=== PATIENT | female | born 1985 | race Caucasian/White ===

== ENCOUNTER 2018-01-04 06:26 | Inpatient (IN) | payer OTHER ==
[2018-01-04] MEDS ORDERED: AMMONIA AROMATIC 1 EACH AMP IH PRN (06:34)
[2018-01-04] MEDS ORDERED: LR 1,000 ML IV PRN (06:34)
[2018-01-04] MEDS ORDERED: OXYTOCIN 20 UNIT in LR 1,000 ML IV PRN (06:34)
[2018-01-04] MEDS ORDERED: MISOPROSTOL 200 MCG TAB PO PRN (06:34)
[2018-01-04] MEDS ORDERED: EPSOM SALT 454 GM TP PRN (06:34)
[2018-01-04] MEDS ORDERED: OLIVE OIL 118 ML BTL MISC PRN (06:34)
[2018-01-04] MEDS ORDERED: TERBUTALINE SULFATE 1 MG/ML VIAL IV PRN (06:34)
[2018-01-04 07:30] LABS: PLATELET COUNT 266 10^3/uL (150-400)
[2018-01-04] MEDS ORDERED: LR 500 ML IV PRN (08:48)
--- NOTE | 2018-01-04 08:48 | PDGENHP ---
History and Physical History and Physical: HPI: Patient is a 32 yo with IUP@ 39-5wks that presents to L&D with complaints of irregular contractions. She has been having contractions since last night at 2200. She is rating pain with contractions 5/10. She denies any alleviating or aggravating factors. She denies any LOF, VB. She reports +FM. EDC: 01/06/18 which is based on LMP: 04/01/17 which is known and consistent with Ultrasound at 8 weeks. Her is complicated by: depression/anxiety (on Zoloft 50 mg), history of fast labor, asthma Review of Systems: Constitutional: Denies any fever, chills, or fatigue HEENT: denies any visual changes, difficulty swallowing, hearing loss Cardiovascular: Denies any chest pain, palpitations, leg swelling Respiratory: denies any cough, wheezing, or shortness of breathe GI: Denies any nausea, vomiting, diarrhea, constipation : denies any dysuria, urgency, frequency, vaginal bleeding Musculoskeletal: denies any muscle or bone pain Skin: denies any rashes Neuro: denies any headache, seizures, lightheadedness, dizziness, or loss of consciousness Psychiatric: denies any depression, anxiety, or SI/HI thoughts HISTORY: Previous OB history: x1, 5#10 Past medical history: Depression/anxiety, asthma Past surgical history:oral surgery Medications: PNV, Zoloft Allergies (list reaction): NKDA LABS: Rh: A positive ABS: Neg Rubella: Immune HbsAg: NR HIV: NR VDRL: NR 1hr: 104 GC: Neg Chlamydia: Neg Pap: Normal GBS: Negative PHYSICAL EXAM: Constitutional: WN, A&Ox3 HEENT: normocephalic atraumatic, supple Heart: RRR, no murmur Chest: CTA-B Abdomen: Soft, nontender, gravid SVE: 4/60/-2 Extremities: no edema, negative tania's sign Neuro: grossly normal Psych: normal affect assessment: Reassuring FHTs, baseline 140 +accels, no decels, moderate variability Contractions: toco q irregular Assessment: 1) 32yo with IUP@ 39-5wks () 2) early labor 3) GBS negative 4) Cat 1 FHR tracing Plan: 1) Admit to L&D 2) pitocin augmentation 3) pain management PRN 4) anticipate
[2018-01-04] MEDS ORDERED: OXYTOCIN 30 UNIT in NS 500 ML IV SCH (09:00)
[2018-01-04] MEDS ORDERED: PHENYLEPHRINE HCL 100 MCG/ML SYR ONE (13:44)
[2018-01-04] MEDS ORDERED: BUPIVACAINE 0.25% 30 ML SDV ONE (13:44)
[2018-01-04] MEDS ORDERED: fentaNYL 100 MCG/2 ML INJ ONE (13:45)
[2018-01-04] MEDS ORDERED: ONDANSETRON 4 MG/2 ML VIAL IVP PRN (14:48)
[2018-01-04] MEDS ORDERED: PHENYLEPHRINE HCL 100 MCG/ML SYR IVP PRN (14:48)
--- NOTE | 2018-01-04 14:51 | POSTANESTH ---
Post Anesthetic Evaluation Cardiovascular Status: Similar to Pre-Op Cond Respiratory Status: Normal, Stable, Similar to Pre-op Cond. Level of Consciousness/Mental Status: Can Participate in Eval, Alert and Oriented Pain Control: Adequate, Prn Tx Ordered Nausea/Vomiting Control: Adequate, Prn Tx Ordered Complications Possibly Related to Anesthesia: None Noted
[2018-01-04] MEDS ORDERED: LR 500 ML IV SCH (15:00)
--- NOTE | 2018-01-04 15:07 | PREANESOB ---
Obstetric Pre-Anesthesia Info - General Info Proposed Procedure: Labor and delivery with pitocin. : 2 Para: 1 - Info Monitors: External FHR Baseline (bpm): 135 FHR Pattern: Reassuring - Labor Status Pitocin: In Use Indications for Labor Analgesia: Induction of Labor, Pain Control Labor Epidural: Proposed Anesthesia ROS: Prior anesthesia for removal of wisdom teeth. Allergies/Adverse Reactions: Allergy/AdvReac Type Severity Reaction Status Date / Time No Known Allergies Allergy Verified 01/04/18 06:52 Home Medications: Medication Instructions Recorded 1 tab PO DAILY 01/04/18 Visit Medications: Generic Name Dose Route Start Last Admin Trade Name Freq PRN Reason Stop Dose Admin Ammonia (Aromatic Spirit) 1 each 01/04/18 06:34 Ammonia Aromatic IH 01/14/18 06:33 ONCE PRN Fainting Diphenhydramine HCl 25 - 50 mg 01/04/18 14:48 Benadryl Injection IVP 07/03/18 14:47 Q6HRS PRN Itching Lactated Ringer's 1,000 mls @ 0 mls/hr 01/04/18 06:34 Lr IV 01/05/18 06:33 PRN PRN SEE PROTOCOL CONDITIONS Protocol Per Protocol Oxytocin 20 unit/ Lactated 1,002 mls @ 150 mls/hr 01/04/18 06:34 Ringer's IV PRN PRN Post- bleeding Lactated Ringer's 500 mls @ 500 mls/hr 01/04/18 08:48 Lr IV 01/05/18 08:48 PRN PRN Maternal Hypotension Oxytocin 30 unit/ Sodium 503 mls @ 0 mls/hr 01/04/18 09:00 01/04/18 09:14 Chloride IV 07/03/18 08:59 503 mls CONT IASAK Administration Protocol Per Protocol Lactated Ringer's 500 mls @ 0 mls/hr 01/04/18 15:00 Lr IV 07/03/18 14:59 CONT ISAAK As Directed Ibuprofen 600 mg 01/04/18 06:34 Motrin PO 07/03/18 06:33 Q6HRS PRN post , inflammation Magnesium Sulfate 454 gm 01/04/18 06:34 Epsom Salt TP 07/03/18 06:33 Q1H PRN perineal discomfort Misoprostol 800 - 1,000 mcg 01/04/18 06:34 Cytotec PO ONCE PRN Vaginal Atony/Bleeding [place] Oil 118 ml 01/04/18 06:34 Sweet Oil MISC 07/03/18 06:33 ONCE PRN perineal massage Ondansetron HCl 4 mg 01/04/18 14:48 Zofran IVP 01/05/18 14:47 Q4HRS PRN Nausea/Vomiting, Can't Take PO Phenylephrine HCl 100 mcg 01/04/18 14:48 Neosynephrine IVP 07/03/18 14:47 .Q2M PRN Hypotension Terbutaline Sulfate 0.25 mg 01/04/18 06:34 Brethine IV 07/03/18 06:33 ONCE PRN Tachysystole Discontinued Medications Generic Name Dose Route Start Last Admin Trade Name Aquiles PRN Reason Stop Dose Admin Bupivacaine HCl Confirm 01/04/18 13:44 Sensorcaine 0.25% Sdv Administered 01/04/18 13:45 Dose 30 ml .ROUTE .STK-MED ONE Fentanyl Confirm 01/04/18 13:45 Sublimaze Administered 01/04/18 13:46 Dose 100 mcg .ROUTE .STK-MED ONE Phenylephrine HCl Confirm 01/04/18 13:44 Neosynephrine Administered 01/04/18 13:45 Dose 1,000 mcg .ROUTE .STK-MED ONE - Anesthesia History Response to Local Anesthetics: Normal Anesthesia & Operative History: No Prior Problems Family Anesthesia History: Negative - Social History Substance Use/Abuse: Denies - Vital Signs Blood Pressure: 117/73 Heart Rate: 87 Height/Weight (Nursing): Height 162.56 cm Weight 79.832 kg - Focused Exam Neck exam: FROM Mallampati Score: Class 1 Mouth exam: normal dental/mouth exam Pulmonary: no respiratory distress Cardiovascular: regular rate and rhythym Labs: 01/04/18 07:10 Patient ABO/Rh A POSITIVE 01/04/18 07:10 - Plan Consent Signed and on Chart: Yes Patient/Guardian Understands and Agrees to Plan: Yes Urgent/Emergent Case: Sydnee ponce completed preop but documented later for safe timely pt care (Written consent after CSE due to patient discomfort.)
--- NOTE | 2018-01-04 15:49 | OBDEL ---
Info Type: Vaginal Presentation at Delivery: Vertex L&D Analgesia/Anesthesia Type: Epidural GBS+: No Intrapartum Medications: Generic Name Dose Route Start Last Admin Trade Name Aquiles PRN Reason Stop Dose Admin Oxytocin 30 unit/ Sodium 503 mls @ 0 mls/hr 01/04/18 09:00 01/04/18 09:14 Chloride IV 07/03/18 08:59 503 mls CONT ISAAK Administration Protocol Per Protocol Indications for Delivery: Spontaneous Labor Vaginal Delivery - Delivery Provider Delivery Physician/CNM: Nuria Franklin - Labor and Delivery Onset of Contractions Date: 01/04/18 Onset of Contractions Time: 13:00 Onset of Contractions Type: Augmented Rupture of Membranes Date: 01/04/18 Rupture of Membranes Time: 14:30 Rupture of Membranes Type: Spontaneous Amniotic Fluid Color: Clear Dilation Complete Date: 01/04/18 Dilation Complete Time: 14:22 Placenta Delivery Date: 01/04/18 Placenta Delivery Time: 14:38 Total Hours of Labor: 1 Laceration: 1st Degree Repair: 3-0, Vicryl Vaginal Sponge Count Correct: Yes Vaginal Needle Count Correct: Yes Vaginal Sweep Performed: Yes EBL: 150 - Medications Labor Augmentation/Induction Methods Used: Pitocin Labor Augmentation/Induction Indication: Contraction Strength Inadequate [place] Data ANGEL: 01/06/18 Gestational Age: 39 week(s) and 5 day(s) Arellano Delivery Date: 01/04/18 Delivery Time: 14:31 Sex of : Female Score (1 Min): 8 Score (5 Min): 8 ICD10 Worksheet Patient Problems: Problems Problem Status Onset First degree perineal laceration during delivery Acute Normal labor and delivery Acute - ICD10 Problem Qualifiers (1) Normal labor and delivery (2) First degree perineal laceration during delivery
[2018-01-04] MEDS ORDERED: HYDROCODONE/APAP 5/325 TAB PO PRN (16:10)
[2018-01-04] MEDS ORDERED: SIMETHICONE 80 MG TAB CHEW PO PRN (16:10)
[2018-01-04] MEDS ORDERED: HYDROCORTISONE 0.5% CREAM TP PRN (16:10)
[2018-01-04] MEDS ORDERED: ACETAMINOPHEN 325 MG TAB PO PRN (16:10)
[2018-01-04] MEDS: IBUPROFEN 600 MG TAB PO PRN ×2 (16:56→22:43)
[2018-01-04 18:43] VITALS: RESP 18
[2018-01-04] MEDS: SERTRALINE HCL 50 MG TAB PO SCH (20:13)
[2018-01-04] MEDS: DOCUSATE SODIUM 100 MG CAP PO PRN (20:13)
[2018-01-05] MEDS: IBUPROFEN 600 MG TAB PO PRN ×4 (05:30→23:32)
[2018-01-05] MEDS: SERTRALINE HCL 50 MG TAB PO SCH (11:44)
--- NOTE | 2018-01-05 17:39 | OBPP ---
Progress Note Assessment/Plan: Assessment: PPD 1 s/p PT SEEN APPROX NOON - LATE NOTE mild anemia Plan: routine care 01/05/18 17:35 Subjective/ Course: 01/05/18 17:36 Pt doing well. happy with labor progress and delivery. bld is less - mod cramps with latching. urinating fine. disc hydrating well. Objective: 01/04/18 07:10 Patient ABO/Rh A POSITIVE 01/04/18 07:10 Temp Pulse Resp BP Pulse Ox 36.9 C 89 18 110/79 95 01/05/18 08:00 01/05/18 08:00 01/05/18 08:00 01/05/18 08:00 01/05/18 08:00 Uterine Position/Fundal Height: Umbilicus -1 Uterine Tone: Firm Physical Exam - Physical Exam Abdomen: non-tender, soft, other (FF at umb -1) Extremities: non-tender, pedal edema (mild) Skin: normal color, warm/dry Neuro/Psych: alert, normal mood/affect
[2018-01-05 20:54] VITALS: O2SAT 92
[2018-01-05] MEDS: DOCUSATE SODIUM 100 MG CAP PO PRN (23:32)
[2018-01-06] MEDS ORDERED: IRON POLYSAC/IRON HEME 28 MG TAB PO SCH (09:00)
[2018-01-06] MEDS: IBUPROFEN 600 MG TAB PO PRN (09:17)
[2018-01-06] MEDS: DOCUSATE SODIUM 100 MG CAP PO PRN (09:17)
[2018-01-06] MEDS: SERTRALINE HCL 50 MG TAB PO SCH (09:17)
[2018-01-06 09:23] VITALS: BP 122/74; PULSE 85; TEMP 98.2
--- NOTE | 2018-01-06 12:03 | OBGCSDC ---
General Delivery Information - General Info : 2 Para: 2 Abortions: 0 Type: Vaginal L&D Analgesia/Anesthesia Type: Epidural Admission Date: 01/04/18 Labs: Patient ABO/Rh A POSITIVE 01/04/18 07:10 Hct 34.4 % (38.0-47.0) L 01/04/18 07:10 - Hospital Course : 01/05/18 17:36 Pt doing well. happy with labor progress and delivery. bld is less - mod cramps with latching. urinating fine. disc hydrating well. 01/06/18 12:55 S) Pt doing well, reports min pain and bleeding. she is ambulating and voiding without difficulty. She is . She desires discharge home today. O) VSS, afebrile constitutional: WNWF, A&Ox3 HEENT: normocephalic, atraumatic, supple Heart: RRR, No murmur Chest: CTA-B Abdomen: Soft, nontender Uterus: Firm at U-2 Lochia: Minimal rubra Perineum: Intact, healing well Extremities: Trace edema, and negative Mirna's sign Neuro: Grossly normal A) 32-year-old S/P PPD#2 P) Discharge home today Continue Pelvic rest x6wks Discussed danger signs (infection, preeclampsia, depression, heavy bleeding, etc ) RTO in 4/6 weeks Vaginal - Delivery Provider Delivery Physician/CNM: Nuria Franklin - Diagnosis Labor: Augmented Rupture of Membranes Type: Spontaneous Amniotic Fluid Color: Clear Laceration: 1st Degree Repair: 3-0, Vicryl - Delivery EBL: 150 Data ANGEL: 01/06/18 Gestational Age: 40 week(s) and 0 day(s) Arellano Delivery Date: 01/04/18 Delivery Time: 14:31 Sex of : Female Score (1 Min): 8 Score (5 Min): 8 Discharge Information - Discharge Information Prescriptions: Ibuprofen [Motrin (*)] 600 mg PO Q6HRS PRN #60 tab PRN Reason: post , inflammation Docusate Sodium [Colace 100 MG (*)] 100 mg PO BID PRN #60 cap PRN Reason: Constipation Iron Polysacch/Iron Heme Polyp [Bifera] 28 mg PO DAILY #60 tab Condition: Good Instruction/Follow Up: Four Weeks, Six Weeks
== END 2018-01-06 13:15 | disposition home or self-care (01) | DRG 775 ==
LOC: FLD 06:26 → FOB 15:00
PROVIDERS: ADMIT Advanced Practice Midwife; ATTEND Advanced Practice Midwife
PROC: 3E033VJ Introduction of Other Hormone into Peripheral Vein, Percutaneous Approach (ICD-10-PCS; principal; 2018-01-04)
PROC: 10E0XZZ Delivery of Products of Conception, External Approach (ICD-10-PCS; principal; 2018-01-04)
PROC: 0HQ9XZZ Repair Perineum Skin, External Approach (ICD-10-PCS; principal; 2018-01-04)
DX: O70.0 First degree perineal laceration during delivery (principal); O99.343 Other mental disorders complicating pregnancy, third trimester; F32.9 Major depressive disorder, single episode, unspecified; Z3A.39 39 weeks gestation of pregnancy; Z37.0 Single live birth
CPT/HCPCS: J2370; J2590; J3010; J3105